=== PATIENT | male | born 1960 | race African-American/Black ===

== ENCOUNTER 2020-07-16 12:04 | Inpatient (IN) | payer OTHER ==
[2020-07-16 12:51] VITALS: BMI 25.9
[2020-07-16] MEDS ORDERED: ONDANSETRON *ODT* 4 MG TABLET SL PRN (13:08)
[2020-07-16] MEDS ORDERED: MENTHOL/PHENOL 1 EACH UD MM PRN (13:08)
[2020-07-16] MEDS ORDERED: MAG HYDROX/AL HYDROX/SIMETH 30 ML UNIT-DOSE CUP PO PRN (13:08)
[2020-07-16] MEDS ORDERED: MAGNESIUM CITRATE 300 ML BOTTLE PO PRN (13:08)
[2020-07-16] MEDS ORDERED: BISMUTH SUBSALICYLATE 262 MG/15 ML BTL PO PRN (13:08)
[2020-07-16] MEDS ORDERED: IBUPROFEN 400 MG TABLET (FP) PO PRN (13:08)
[2020-07-16] MEDS ORDERED: chlordiazePOXIDE HCL 25 MG CAPSULE PO PRN (13:08)
[2020-07-16] MEDS ORDERED: NICOTINE POLACRILEX 2 MG GUM BUC PRN (13:08)
[2020-07-16] MEDS ORDERED: ACETAMINOPHEN 325 MG TABLET (FP) PO PRN ×2 (13:08)
[2020-07-16] MEDS ORDERED: MAGNESIUM HYDROX 2400MG/30ML ORAL SUSPENSION 30 ML CUP PO PRN (13:08)
[2020-07-16] MEDS ORDERED: ALBUTEROL SO4 HFA INHALER IH PRN (13:10)
[2020-07-16] MEDS: hydrOXYzine PAMOATE 25 MG CAPSULE (FP) PO SCH ×3 (15:06→22:05)
[2020-07-16] MEDS: chlordiazePOXIDE HCL 25 MG CAPSULE PO SCH ×3 (15:07→22:05)
[2020-07-16] MEDS: METHOCARBAMOL 500 MG TABLET PO PRN (15:07)
[2020-07-16] MEDS: PRENATAL VITAMINS W/ FOLIC ACID TABLET (FP) PO SCH (15:09)
[2020-07-16 18:36] LABS: HIV INTERPRETATION NEGATIVE (NEGATIVE)
[2020-07-16] MEDS: MELATONIN 5 MG TABLETS PO SCH (22:05)
[2020-07-16] MEDS: GABAPENTIN 100 MG CAPSULE PO SCH (22:05)
[2020-07-16] MEDS: THIAMINE HCL 100 MG TABLET (FP) PO SCH (22:05)
[2020-07-17] MEDS: chlordiazePOXIDE HCL 25 MG CAPSULE PO SCH ×4 (05:56→22:57)
[2020-07-17] MEDS: hydrOXYzine PAMOATE 25 MG CAPSULE (FP) PO SCH ×2 (05:57→10:29)
[2020-07-17] MEDS: PRENATAL VITAMINS W/ FOLIC ACID TABLET (FP) PO SCH (10:29)
[2020-07-17] MEDS: GABAPENTIN 100 MG CAPSULE PO SCH ×2 (10:29→22:57)
[2020-07-17] MEDS ORDERED: hydrOXYzine PAMOATE 25 MG CAPSULE (FP) PO PRN (11:44)
[2020-07-17 12:25] LABS: HEMATOCRIT 42.3 % (35.4-49); HEMOGLOBIN 14.1 GM/dL (11.7-16.9); MCH 30.7 pg (25.7-33.7); MCHC 33.4 g/dl (32.0-35.9); MEAN CELL VOLUME 91.9 fl (80-96); MEAN PLT VOLUME 9.3 fl (7.5-11.1); PLATELET COUNT 222 K/MM3 (134-434); RDW 13.5 % (11.9-15.9); WHITE BLOOD COUNT 6.4 K/mm3 (4.0-10.0)
[2020-07-17 12:30] LABS: POTASSIUM 4.3 mmol/L (3.5-5.1)
[2020-07-17 12:40] LABS: ALBUMIN 3.6 g/dl (3.4-5.0); BLOOD UREA NITROGEN 18.4 mg/dL (7-18)
[2020-07-17 12:42] LABS: BILIRUBIN,TOTAL 0.7 mg/dL (0.2-1)
[2020-07-17 12:43] LABS: CREATININE 1.1 mg/dL (0.55-1.3)
[2020-07-17] MEDS: METHOCARBAMOL 500 MG TABLET PO PRN (14:37)
[2020-07-17] MEDS: THIAMINE HCL 100 MG TABLET (FP) PO SCH (22:57)
[2020-07-17] MEDS: MELATONIN 5 MG TABLETS PO SCH (22:57)
[2020-07-18] MEDS: chlordiazePOXIDE HCL 25 MG CAPSULE PO SCH ×4 (05:31→22:44)
[2020-07-18] MEDS: GABAPENTIN 100 MG CAPSULE PO SCH ×2 (10:09→22:44)
[2020-07-18] MEDS: PRENATAL VITAMINS W/ FOLIC ACID TABLET (FP) PO SCH (10:09)
[2020-07-18] MEDS: MELATONIN 5 MG TABLETS PO SCH (22:43)
[2020-07-18] MEDS: THIAMINE HCL 100 MG TABLET (FP) PO SCH (22:44)
[2020-07-19] MEDS ORDERED: chlordiazePOXIDE HCL 10 MG CAPSULE PO PRN
[2020-07-19] MEDS: chlordiazePOXIDE HCL 10 MG CAPSULE PO SCH ×4 (06:06→22:51)
[2020-07-19] MEDS: PRENATAL VITAMINS W/ FOLIC ACID TABLET (FP) PO SCH (10:21)
[2020-07-19] MEDS: GABAPENTIN 100 MG CAPSULE PO SCH ×2 (10:21→22:51)
[2020-07-19] MEDS: THIAMINE HCL 100 MG TABLET (FP) PO SCH (22:51)
[2020-07-19] MEDS: MELATONIN 5 MG TABLETS PO SCH (22:51)
[2020-07-20] MEDS: chlordiazePOXIDE HCL 10 MG CAPSULE PO SCH ×2 (05:18→18:25)
[2020-07-20] MEDS: GABAPENTIN 100 MG CAPSULE PO SCH ×2 (11:17→22:16)
[2020-07-20] MEDS: PRENATAL VITAMINS W/ FOLIC ACID TABLET (FP) PO SCH (11:17)
[2020-07-20] MEDS: THIAMINE HCL 100 MG TABLET (FP) PO SCH (22:16)
[2020-07-20] MEDS: MELATONIN 5 MG TABLETS PO SCH (22:17)
[2020-07-21] MEDS ORDERED: chlordiazePOXIDE HCL 10 MG CAPSULE PO ONE (05:00)
[2020-07-21 05:52] VITALS: TEMP 97.5
[2020-07-21 09:31] VITALS: BP 128/69; PULSE 78
[2020-07-21] MEDS: PRENATAL VITAMINS W/ FOLIC ACID TABLET (FP) PO SCH (10:14)
[2020-07-21] MEDS: GABAPENTIN 100 MG CAPSULE PO SCH (10:15)
== END 2020-07-21 11:07 | disposition home or self-care (01) | DRG 897 ==
LOC: YASAS 12:04 → Y3N 13:41
PROVIDERS: ADMIT Allergy & Immunology; ATTEND Allergy & Immunology
PROC: HZ2ZZZZ Detoxification Services for Substance Abuse Treatment (ICD-10-PCS; principal; 2020-07-16)
DX: F10.230 Alcohol dependence with withdrawal, uncomplicated (principal); F14.20 Cocaine dependence, uncomplicated; F17.210 Nicotine dependence, cigarettes, uncomplicated; F31.9 Bipolar disorder, unspecified; F43.10 Post-traumatic stress disorder, unspecified; G40.909 Epilepsy, unspecified, not intractable, without status epilepticus; J45.909 Unspecified asthma, uncomplicated; L85.3 Xerosis cutis; M54.30 Sciatica, unspecified side; M19.90 Unspecified osteoarthritis, unspecified site; T81.82XA Emphysema (subcutaneous) resulting from a procedure, initial encounter; R79.89 Other specified abnormal findings of blood chemistry; Z59.0 Homelessness
CPT/HCPCS: 36415; 80053; 85027; 86780; 87389; C9803; U0003

== ENCOUNTER 2022-11-20 15:37 | Inpatient (IN) | payer OTHER ==
[2022-11-20 16:03] VITALS: BMI 22.6
[2022-11-20] MEDS ORDERED: POLYETHYLENE GLYCOL (HEALTHYLAX) 3350 17 GM PACKET PO PRN (17:12)
[2022-11-20] MEDS ORDERED: BISMUTH SUBSALICYLATE 524 MG/30 ML PO PRN (17:12)
[2022-11-20] MEDS ORDERED: IBUPROFEN 600 MG TABLET (FP) PO PRN (17:12)
[2022-11-20] MEDS ORDERED: LOPERAMIDE HCL 2 MG CAPSULE PO PRN (17:12)
[2022-11-20] MEDS ORDERED: chlordiazePOXIDE HCL 25 MG CAPSULE PO PRN (17:12)
[2022-11-20] MEDS ORDERED: NALOXONE HCL 0.4 MG/ML VIAL IM PRN (17:12)
[2022-11-20] MEDS ORDERED: MAG HYDROX/AL HYDROX/SIMETH 30 ML UNIT-DOSE CUP PO PRN (17:12)
[2022-11-20] MEDS ORDERED: MAGNESIUM HYDROX 2400MG/30ML ORAL SUSPENSION 30 ML CUP PO PRN (17:12)
[2022-11-20] MEDS ORDERED: DICYCLOMINE HCL 10 MG CAPSULE PO PRN (17:12)
[2022-11-20] MEDS ORDERED: ONDANSETRON *ODT* 4 MG TABLET SL PRN (17:12)
[2022-11-20] MEDS ORDERED: NICOTINE 10 MG CARTRIDGE (INHALER) IH PRN (17:12)
[2022-11-20] MEDS ORDERED: NALOXONE HCL (KLOXXADO) 8 MG SPRAY NS PRN (17:12)
[2022-11-20] MEDS ORDERED: ACETAMINOPHEN 325 MG TABLET (FP) PO PRN (17:12)
[2022-11-20] MEDS ORDERED: BENZONATATE 200 MG CAPSULE PO PRN (17:12)
[2022-11-20] MEDS ORDERED: NICOTINE POLACRILEX 2 MG GUM BUC PRN (17:12)
[2022-11-20] MEDS ORDERED: guaiFENesin 600 MG TABLET.ER (FP) PO PRN (17:12)
[2022-11-20] MEDS ORDERED: BENZOCAINE/MENTHOL (CHLORASEPTIC ) LOZENGE MM PRN (17:12)
[2022-11-20] MEDS ORDERED: IBUPROFEN 400 MG TABLET (FP) PO PRN (17:12)
[2022-11-20] MEDS: hydrOXYzine PAMOATE 25 MG CAPSULE (FP) PO PRN (20:08)
[2022-11-20] MEDS: chlordiazePOXIDE HCL 25 MG CAPSULE PO SCH (22:20)
[2022-11-20] MEDS: MELATONIN 5 MG TABLETS PO SCH (22:20)
[2022-11-20] MEDS: THIAMINE HCL 100 MG TABLET (FP) PO SCH (22:20)
[2022-11-21] MEDS: chlordiazePOXIDE HCL 25 MG CAPSULE PO SCH ×4 (05:26→22:27)
[2022-11-21] MEDS ORDERED: ALBUTEROL SO4 HFA INHALER IH PRN (09:51)
[2022-11-21] MEDS: PRENATAL VITAMINS W/ FOLIC ACID TABLET (FP) PO SCH (10:46)
[2022-11-21] MEDS: METHOCARBAMOL 500 MG TABLET PO PRN (10:47)
[2022-11-21 11:35] LABS: HEMATOCRIT 41.5 % (35.4-49); HEMOGLOBIN 13.4 GM/dL (11.7-16.9); MCH 30.5 pg (25.7-33.7); MCHC 32.3 g/dl (32.0-35.9); MEAN CELL VOLUME 94.3 fl (80-96); MEAN PLT VOLUME 9.8 fl (7.5-11.1); PLATELET COUNT 239 10^3/uL (134-434); RDW 13.2 % (11.9-15.9); WHITE BLOOD COUNT 5.2 K/mm3 (4.0-10.0)
[2022-11-21 11:42] LABS: POTASSIUM 4.4 mmol/L (3.5-5.1)
[2022-11-21 11:48] LABS: ALBUMIN 2.8 g/dl (3.4-5.0); CALCIUM 8.7 mg/dL (8.5-10.1)
[2022-11-21 11:52] LABS: CREATININE 0.9 mg/dL (0.55-1.3)
[2022-11-21 11:54] LABS: BILIRUBIN,TOTAL 1.2 mg/dL (0.2-1); TOT PROT 5.7 g/dl (6.4-8.2)
[2022-11-21] MEDS: MELATONIN 5 MG TABLETS PO SCH (22:27)
[2022-11-21] MEDS: THIAMINE HCL 100 MG TABLET (FP) PO SCH (22:27)
[2022-11-21] MEDS: traZODone HCL 100 MG TABLET (FP) PO SCH (22:27)
[2022-11-22] MEDS: chlordiazePOXIDE HCL 25 MG CAPSULE PO SCH ×4 (05:19→22:42)
[2022-11-22] MEDS: SULFAMETHOXAZOLE/TRIMETHOPRIM 800MG/160MG D.S. TABLET PO SCH ×2 (10:18→22:36)
[2022-11-22] MEDS: PRENATAL VITAMINS W/ FOLIC ACID TABLET (FP) PO SCH (10:18)
[2022-11-22] MEDS: THIAMINE HCL 100 MG TABLET (FP) PO SCH (22:36)
[2022-11-22] MEDS: traZODone HCL 100 MG TABLET (FP) PO SCH (22:36)
[2022-11-22] MEDS: MELATONIN 5 MG TABLETS PO SCH (22:36)
[2022-11-23] MEDS ORDERED: chlordiazePOXIDE HCL 10 MG CAPSULE PO PRN
[2022-11-23] MEDS ORDERED: chlordiazePOXIDE HCL 10 MG CAPSULE PO SCH (05:00)
[2022-11-23] MEDS: AMMONIUM LACTATE 12% LOTION 225 GM BOTTLE TP PRN (07:14)
[2022-11-23] MEDS ORDERED: chlordiazePOXIDE 5 MG CAPSULE PO PRN (10:40)
[2022-11-23] MEDS: PRENATAL VITAMINS W/ FOLIC ACID TABLET (FP) PO SCH (10:52)
[2022-11-23] MEDS: SULFAMETHOXAZOLE/TRIMETHOPRIM 800MG/160MG D.S. TABLET PO SCH ×2 (10:53→22:33)
[2022-11-23] MEDS: chlordiazePOXIDE 5 MG CAPSULE PO SCH ×2 (17:16→22:32)
[2022-11-23] MEDS: THIAMINE HCL 100 MG TABLET (FP) PO SCH (22:32)
[2022-11-23] MEDS: MELATONIN 5 MG TABLETS PO SCH (22:33)
[2022-11-23] MEDS: traZODone HCL 100 MG TABLET (FP) PO SCH (22:33)
[2022-11-24] MEDS: chlordiazePOXIDE HCL 10 MG CAPSULE PO SCH ×2 (05:13→17:17)
[2022-11-24] MEDS: AMMONIUM LACTATE 12% LOTION 225 GM BOTTLE TP PRN (05:42)
[2022-11-24] MEDS: SULFAMETHOXAZOLE/TRIMETHOPRIM 800MG/160MG D.S. TABLET PO SCH ×2 (10:26→22:24)
[2022-11-24] MEDS: PRENATAL VITAMINS W/ FOLIC ACID TABLET (FP) PO SCH (10:26)
[2022-11-24] MEDS: traZODone HCL 100 MG TABLET (FP) PO SCH (22:24)
[2022-11-24] MEDS: THIAMINE HCL 100 MG TABLET (FP) PO SCH (22:24)
[2022-11-24] MEDS: MELATONIN 5 MG TABLETS PO SCH (22:24)
[2022-11-25] MEDS ORDERED: chlordiazePOXIDE HCL 10 MG CAPSULE PO ONE (05:00)
[2022-11-25 07:31] VITALS: RESP 18
[2022-11-25 09:48] VITALS: BP 110/64; PULSE 66; TEMP 98
[2022-11-25] MEDS: SULFAMETHOXAZOLE/TRIMETHOPRIM 800MG/160MG D.S. TABLET PO SCH (09:51)
[2022-11-25] MEDS: PRENATAL VITAMINS W/ FOLIC ACID TABLET (FP) PO SCH (09:52)
[2022-11-25] MEDS: hydrOXYzine PAMOATE 25 MG CAPSULE (FP) PO PRN (09:52)
[2022-11-25] MEDS: METHOCARBAMOL 500 MG TABLET PO PRN (09:52)
== END 2022-11-25 11:27 | disposition home or self-care (01) | DRG 897 ==
LOC: YASAS 15:37 → Y6N 18:08
PROVIDERS: ADMIT Allergy & Immunology; ATTEND Surgery
PROC: HZ2ZZZZ Detoxification Services for Substance Abuse Treatment (ICD-10-PCS; principal; 2022-11-20)
DX: F10.230 Alcohol dependence with withdrawal, uncomplicated (principal); F14.20 Cocaine dependence, uncomplicated; N39.0 Urinary tract infection, site not specified; F12.20 Cannabis dependence, uncomplicated; F17.210 Nicotine dependence, cigarettes, uncomplicated; F10.282 Alcohol dependence with alcohol-induced sleep disorder; F10.24 Alcohol dependence with alcohol-induced mood disorder; F32.A Depression, unspecified; J44.9 Chronic obstructive pulmonary disease, unspecified; J45.20 Mild intermittent asthma, uncomplicated; G40.909 Epilepsy, unspecified, not intractable, without status epilepticus; K21.9 Gastro-esophageal reflux disease without esophagitis; M54.40 Lumbago with sciatica, unspecified side; G89.29 Other chronic pain; Z86.69 Personal history of other diseases of the nervous system and sense organs; Z56.0 Unemployment, unspecified; Z59.01 Sheltered homelessness
CPT/HCPCS: 36415; 80053; 82962; 83036; 85027; 86780

== ENCOUNTER 2023-07-22 18:29 | Inpatient (IN) | payer OTHER ==
[2023-07-22 22:12] VITALS: BMI 23.7
[2023-07-23] MEDS ORDERED: MAGNESIUM HYDROX 2400MG/30ML ORAL SUSPENSION 30 ML CUP PO PRN (02:09)
[2023-07-23] MEDS ORDERED: ONDANSETRON *ODT* 4 MG TABLET SL PRN (02:09)
[2023-07-23] MEDS ORDERED: MAG HYDROX/AL HYDROX/SIMETH 30 ML UNIT-DOSE CUP PO PRN (02:09)
[2023-07-23] MEDS ORDERED: BISMUTH SUBSALICYLATE 524 MG/30 ML PO PRN (02:09)
[2023-07-23] MEDS ORDERED: NALOXONE HCL (KLOXXADO) 8 MG SPRAY NS PRN (02:09)
[2023-07-23] MEDS ORDERED: guaiFENesin 600 MG TABLET.ER (FP) PO PRN (02:09)
[2023-07-23] MEDS ORDERED: LOPERAMIDE HCL 2 MG CAPSULE PO PRN (02:09)
[2023-07-23] MEDS ORDERED: IBUPROFEN 600 MG TABLET (FP) PO PRN (02:09)
[2023-07-23] MEDS ORDERED: NALOXONE HCL 0.4 MG/ML VIAL IM PRN (02:09)
[2023-07-23] MEDS ORDERED: BENZOCAINE/MENTHOL (CHLORASEPTIC ) LOZENGE MM PRN (02:09)
[2023-07-23] MEDS ORDERED: IBUPROFEN 400 MG TABLET (FP) PO PRN (02:09)
[2023-07-23] MEDS ORDERED: DICYCLOMINE HCL 10 MG CAPSULE PO PRN (02:09)
[2023-07-23] MEDS ORDERED: BENZONATATE 200 MG CAPSULE PO PRN (02:09)
[2023-07-23] MEDS ORDERED: POLYETHYLENE GLYCOL (HEALTHYLAX) 3350 17 GM PACKET PO PRN (02:09)
[2023-07-23] MEDS ORDERED: diazePAM 5 MG TABLET ONE (02:38)
[2023-07-23] MEDS: diazePAM 5 MG TABLET PO PRN (02:40)
[2023-07-23] MEDS: diazePAM 5 MG TABLET PO SCH (05:56)
[2023-07-23] MEDS: PRENATAL VITAMINS W/ FOLIC ACID TABLET (FP) PO SCH (10:51)
[2023-07-23] MEDS: ACETAMINOPHEN 325 MG TABLET (FP) PO PRN (17:31)
[2023-07-23] MEDS: hydrOXYzine PAMOATE 25 MG CAPSULE (FP) PO PRN (18:25)
[2023-07-23] MEDS ORDERED: MELATONIN 5 MG TABLETS PO SCH (22:00)
[2023-07-23] MEDS: THIAMINE HCL 100 MG TABLET (FP) PO SCH (22:57)
[2023-07-23] MEDS: traZODone HCL 100 MG TABLET (FP) PO PRN (22:58)
[2023-07-24] MEDS: diazePAM 5 MG TABLET PO SCH (05:58)
[2023-07-24 11:35] LABS: HEMATOCRIT 39.3 % (35.4-49); HEMOGLOBIN 13.3 GM/dL (11.7-16.9); MCHC 33.9 g/dl (32.0-35.9); MEAN CELL VOLUME 91.6 fl (80-96); PLATELET COUNT 216 10^3/uL (134-434); RBC 4.29 M/mm3 (4.00-5.60); RDW 13.7 % (11.9-15.9)
[2023-07-24 11:45] LABS: POTASSIUM 4.1 mmol/L (3.5-5.1)
[2023-07-24 11:48] LABS: CALCIUM 8.1 mg/dL (8.5-10.1)
[2023-07-24 11:49] LABS: ALBUMIN 2.7 g/dl (3.4-5.0); BLOOD UREA NITROGEN 14.5 mg/dL (7-18)
[2023-07-24 11:53] LABS: BILIRUBIN,TOTAL 0.2 mg/dL (0.2-1); TOT PROT 5.7 g/dl (6.4-8.2)
[2023-07-24] MEDS ORDERED: ALBUTEROL SO4 HFA INHALER IH PRN (13:06)
[2023-07-24] MEDS: METHOCARBAMOL 500 MG TABLET PO PRN (22:20)
[2023-07-25] MEDS: diazePAM 5 MG TABLET PO SCH (06:03)
[2023-07-25] MEDS: BUDESONIDE/FORMETEROL FUMARATE 80/4.5 mcg INHALER IH SCH (22:27)
[2023-07-25] MEDS ORDERED: ROSUVASTATIN CA 10 MG TABLET ONE (23:05)
[2023-07-25] MEDS: ROSUVASTATIN CA 20 MG TABLET PO SCH (23:08)
[2023-07-25] MEDS: CLOTRIMAZOLE 1% CREAM TP SCH (23:41)
[2023-07-26] MEDS: diazePAM 5 MG TABLET PO ONE (05:29)
[2023-07-26 10:37] VITALS: BP 140/80; PULSE 80; RESP 18; TEMP 98.2
[2023-07-26 11:42] LABS: CHOLESTEROL 216 mg/dL (50-200)
[2023-07-26 11:43] LABS: LDL CHOLESTEROL (ONLY SJRH) 124 mg/dL (5-100)
[2023-07-26 11:45] LABS: HDL CHOLESTEROL 75 mg/dL (40-60)
== END 2023-07-26 11:10 | disposition home or self-care (01) | DRG 897 ==
LOC: YASAS 18:29 → Y6N 07-23 06:45
PROVIDERS: ADMIT Allergy & Immunology; ATTEND Surgery
PROC: HZ2ZZZZ Detoxification Services for Substance Abuse Treatment (ICD-10-PCS; principal; 2023-07-23)
DX: F10.230 Alcohol dependence with withdrawal, uncomplicated (principal); F19.282 Other psychoactive substance dependence with psychoactive substance-induced sleep disorder; Z59.00 Homelessness unspecified; F14.10 Cocaine abuse, uncomplicated; F17.210 Nicotine dependence, cigarettes, uncomplicated; F31.9 Bipolar disorder, unspecified; F19.24 Other psychoactive substance dependence with psychoactive substance-induced mood disorder; E78.5 Hyperlipidemia, unspecified; K21.9 Gastro-esophageal reflux disease without esophagitis; M54.40 Lumbago with sciatica, unspecified side; G89.29 Other chronic pain; Z56.0 Unemployment, unspecified
CPT/HCPCS: 36415; 80053; 80061; 80307; 85027; 86780; 87635; 93005; 93010

== ENCOUNTER 2024-05-07 14:20 | Inpatient (IN) | payer OTHER ==
[2024-05-07] MEDS ORDERED: IBUPROFEN 400 MG TABLET (FP) PO PRN (15:31)
[2024-05-07] MEDS ORDERED: diazePAM 5 MG TABLET PO PRN (15:31)
[2024-05-07] MEDS ORDERED: hydrOXYzine PAMOATE 25 MG CAPSULE (FP) PO PRN (15:31)
[2024-05-07] MEDS ORDERED: ACETAMINOPHEN 325 MG TABLET (FP) PO PRN (15:31)
[2024-05-07] MEDS ORDERED: METHOCARBAMOL 500 MG TABLET PO PRN (15:31)
[2024-05-07] MEDS ORDERED: BISMUTH SUBSALICYLATE 524 MG/30 ML PO PRN (15:31)
[2024-05-07] MEDS ORDERED: POLYETHYLENE GLYCOL (HEALTHYLAX) 3350 17 GM PACKET PO PRN (15:31)
[2024-05-07] MEDS ORDERED: guaiFENesin 600 MG TABLET.ER (FP) PO PRN (15:31)
[2024-05-07] MEDS ORDERED: LOPERAMIDE HCL 2 MG CAPSULE PO PRN (15:31)
[2024-05-07] MEDS ORDERED: NALOXONE (NARCAN) HCL 4 MG/0.1 ML SPRAY NS PRN (15:31)
[2024-05-07] MEDS ORDERED: NICOTINE POLACRILEX 2 MG GUM BUC PRN (15:31)
[2024-05-07] MEDS ORDERED: MAGNESIUM HYDROX 2400MG/30ML ORAL SUSPENSION 30 ML CUP PO PRN (15:31)
[2024-05-07] MEDS ORDERED: DICYCLOMINE HCL 10 MG CAPSULE PO PRN (15:31)
[2024-05-07] MEDS ORDERED: BENZOCAINE/MENTHOL (CHLORASEPTIC ) LOZENGE MM PRN (15:31)
[2024-05-07] MEDS ORDERED: MAG HYDROX/AL HYDROX/SIMETH 30 ML UNIT-DOSE CUP PO PRN (15:31)
[2024-05-07] MEDS ORDERED: ONDANSETRON *ODT* 4 MG TABLET SL PRN (15:31)
[2024-05-07] MEDS ORDERED: BENZONATATE 200 MG CAPSULE PO PRN (15:31)
[2024-05-07 16:17] VITALS: BMI 20.2
[2024-05-07] MEDS ORDERED: diazePAM 5 MG TABLET ONE (17:23)
[2024-05-07] MEDS: diazePAM 5 MG TABLET PO SCH (17:30)
[2024-05-07] MEDS: MELATONIN 5 MG TABLETS PO SCH (22:11)
[2024-05-07] MEDS: IBUPROFEN 600 MG TABLET (FP) PO PRN (22:11)
[2024-05-07] MEDS: THIAMINE 100 MG TABLET PO SCH (22:12)
[2024-05-08] MEDS ORDERED: ALBUTEROL SO4 HFA INHALER IH PRN (08:53)
[2024-05-08 09:54] LABS: HEMATOCRIT 39.4 % (35.4-49); HEMOGLOBIN 12.9 GM/dL (11.7-16.9); MCH 30.2 pg (25.7-33.7); MCHC 32.6 g/dl (32.0-35.9); MEAN CELL VOLUME 92.6 fl (80-96); MEAN PLT VOLUME 8.8 fl (7.5-11.1); PLATELET COUNT 248 10^3/uL (134-434); RBC 4.26 M/mm3 (4.00-5.60); RDW 13.4 % (11.9-15.9); WHITE BLOOD COUNT 5.3 K/mm3 (4.0-10.0)
[2024-05-08] MEDS: PRENATAL VITAMINS W/ FOLIC ACID TABLET (FP) PO SCH (10:22)
[2024-05-08 10:40] LABS: CHLORIDE 108 mmol/L (98-107); POTASSIUM 3.7 mmol/L (3.5-5.1); SODIUM 140 mmol/L (136-145)
[2024-05-08 10:46] LABS: ALBUMIN 2.8 g/dl (3.4-5.0); ANION GAP 7 mmol/L (4-13); BLOOD UREA NITROGEN 12.2 mg/dL (7-18); CALCIUM 8.9 mg/dL (8.5-10.1); CO2 25 mmol/L (21-32); GLUCOSE,RANDOM 145 mg/dL (74-106)
[2024-05-08 10:49] LABS: SGOT/AST 15 U/L (15-37); SGPT/ALT 14 U/L (13-61)
[2024-05-08 10:51] LABS: BILIRUBIN,TOTAL 0.4 mg/dL (0.2-1); TOT PROT 5.7 g/dl (6.4-8.2)
[2024-05-08 10:52] LABS: ALK PHOS 119 U/L (45-117)
[2024-05-08] MEDS ORDERED: PNEUMOC 20-VAL CONJ-DIP CRM/PF 0.5 ML SYRINGE IM ONE (17:51)
[2024-05-08] MEDS: traZODone HCL 100 MG TABLET (FP) PO SCH (22:09)
[2024-05-09] MEDS: diazePAM 5 MG TABLET PO SCH (05:31)
[2024-05-09] MEDS: PNEUMOC 20-VAL CONJ-DIP CRM/PF 0.5 ML SYRINGE IM ONE (09:40)
[2024-05-09] MEDS ORDERED: P-EPHED 60MG/TRIPROLIDI 2.5MG TABLET PO PRN (23:06)
[2024-05-10] MEDS: diazePAM 5 MG TABLET PO SCH (06:16)
[2024-05-10 09:05] VITALS: RESP 18
[2024-05-10] MEDS ORDERED: NALOXONE (NYS OPIOID OVERDOSE PROGRAM) 4 MG/0.1 ML SPRAY NS SCH (11:15)
[2024-05-10 12:46] VITALS: BP 126/80; PULSE 81; TEMP 97.7
[2024-05-10] MEDS: NALOXONE (NYS OPIOID OVERDOSE PROGRAM) 4 MG/0.1 ML SPRAY NS PRN (15:43)
[2024-05-11] MEDS ORDERED: diazePAM 5 MG TABLET PO ONE (06:00)
== END 2024-05-10 15:00 | disposition home or self-care (01) | DRG 897 ==
LOC: YASAS 14:20 → Y6N 17:09
PROVIDERS: ADMIT Allergy & Immunology; ATTEND Surgery
PROC: HZ2ZZZZ Detoxification Services for Substance Abuse Treatment (ICD-10-PCS; principal; 2024-05-07)
DX: F10.230 Alcohol dependence with withdrawal, uncomplicated (principal); F14.20 Cocaine dependence, uncomplicated; F17.210 Nicotine dependence, cigarettes, uncomplicated; F10.282 Alcohol dependence with alcohol-induced sleep disorder; F31.9 Bipolar disorder, unspecified; E78.2 Mixed hyperlipidemia; J43.9 Emphysema, unspecified; J45.40 Moderate persistent asthma, uncomplicated; M15.0 Primary generalized (osteo)arthritis; M54.40 Lumbago with sciatica, unspecified side; G89.29 Other chronic pain
CPT/HCPCS: 36415; 80053; 80305; 80307; 85027; 86780; 93005; 93010